=== PATIENT | female | born 1965 | race American Indian/Alaskan Native ===

== ENCOUNTER 2016-12-20 10:57 | Outpatient (CLI) | payer OTHER ==
--- NOTE | 2016-12-23 08:16 | Mammography Report ---
BILATERAL DIGITAL SCREENING MAMMOGRAM with CAD: 12/20/16 10:57:00 CLINICAL: Routine screening.Previous right benign biopsy. COMPARISON:12/27/15 and 09/08/14 FINDINGS: The breasts are heterogeneously dense, which may obscure small masses. Right upper asymmetry and architectural distortion on the MLO view requires additional imaging.No suspicious calcifications.The left breast is negative. IMPRESSION: Right asymmetry and architectural distortion requiring further workup. BI-RADS CATEGORY: 0 -- Additional Imaging Evaluation Required RECOMMENDATION: Recall for right exaggerated CC and spot magnification MLO views and right breast ultrasound if needed. ACR BI-RADS MAMMOGRAPHIC CODES: 0 = Needs additional imaging evaluation; 1 = Negative; 2 = Benign; 3 = Probably benign; 4 = Suspicious; 5 = Malignant; 6 = Known biopsy-proven malignancy COMMENT: 1. Dense breast tissue, i.e., adenosis, fibrocystic changes, etc., may obscure an underlying neoplasm. 2. Approximately 10% of cancers are not detected with mammography. 3. A negative mammography report should not delay biopsy if a clinically suspicious mass is present. COMMENT: Patient follow-up letters are generated via our [employer] application.
== END 2016-12-20 10:58 | disposition home or self-care (01) ==
LOC: SPVWC 10:57
PROVIDERS: ATTEND Internal Medicine
DX: Z12.31 Encounter for screening mammogram for malignant neoplasm of breast (principal)
CPT/HCPCS: 77067; G0202

== ENCOUNTER 2016-12-24 10:02 | Outpatient (CLI) | payer OTHER ==
--- NOTE | 2016-12-24 12:19 | Ultrasound Report ---
RIGHT DIGITAL DIAGNOSTIC MAMMOGRAM and RIGHT BREAST ULTRASOUND: 12/24/16 10:02:00 CLINICAL: Recalled for asymmetry. COMPARISON:12/20/16 screening FINDINGS: The upper posterior irregular asymmetry persists on a spot magnification MLO view but there is no correlation on other views. Ultrasound of the right breast (including all four quadrants and the retroareolar area) was performed and demonstrated normal fibroglandular and fatty structures. No mass, cyst or shadowing to correlate with the mammographic finding. IMPRESSION: A probably benign mammographic asymmetry identified only on one view of the mammogram with the negative ultrasound. Recommend short-term followup with a right diagnostic mammogram in three months. BI-RADS CATEGORY: 3 - - Probably Benign ACR BI-RADS MAMMOGRAPHIC CODES: 0 = Needs additional imaging evaluation; 1 = Negative; 2 = Benign; 3 = Probably benign; 4 = Suspicious; 5 = Malignant; 6 = Known biopsy-proven malignancy COMMENT: 1. Dense breast tissue, i.e., adenosis, fibrocystic changes, etc., may obscure an underlying neoplasm. 2. Approximately 10% of cancers are not detected with mammography. 3. A negative mammography report should not delay biopsy if a clinically suspicious mass is present. COMMENT: Patient follow-up letters are generated via our [employer] application.
== END 2016-12-24 10:03 | disposition home or self-care (01) ==
LOC: SPVWC 10:02
PROVIDERS: ATTEND Internal Medicine
DX: N64.89 Other specified disorders of breast (principal); R92.8 Other abnormal and inconclusive findings on diagnostic imaging of breast
CPT/HCPCS: 76641; G0206

== ENCOUNTER 2017-01-06 14:10 | Outpatient (CLI) | payer OTHER ==
--- NOTE | 2017-01-07 10:27 | Magnetic Resonance Report ---
BILATERAL BREAST MRI WITHOUT AND WITH CONTRAST: 01/06/17 14:10:00 CLINICAL: Abnormal right mammogram with asymmetry and architectural distortion. Negative right breast ultrasound. COMPARISON:12/20/16 and 12/24/16 grams. TECHNIQUE: Axial 1.0-mm T1 without, axial high resolution 2.0-mm T2 and axial 1.0-mm dynamic Vibrant high-resolution postcontrast T1 fat saturation sequences on a 1.5 Bell magnet. The examination was performed with an 8 channel dedicated [place] breast coil. Post processing with CAD and subtraction was performed on an [employer] workstation. 20 cc of Multihance was injected without incident for the contrast portion of the exam. Consent was obtained prior to the administration of the contrast. FINDINGS: Right: Minimal background parenchymal enhancement. No mass or suspicious enhancement. Nonenhancing upper outer asymmetric soft tissue correlates with the recent mammographic findings. An upper outer benign intraparenchymal lymph node measures 4 mm and is located 6.5 cm from the nipple. No suspicious lymph nodes. Left: Minimal background parenchymal enhancement. No mass or suspicious enhancement. A benign upper inner intraparenchymal lymph node measures 2 mm and is located 4.0 cm from the nipple. No suspicious lymph nodes. IMPRESSION: Negative study with no suspicious finding. Benign asymmetric right upper outer soft tissue correlates with the asymmetry and architectural distortion on the MLO view of the recent mammogram. Recommend routine mammographic screening. BI-RADS 2 -- Benign
== END 2017-01-06 14:11 | disposition home or self-care (01) ==
LOC: SPVIMAG 14:10
PROVIDERS: ATTEND Surgery
DX: N64.89 Other specified disorders of breast (principal)
CPT/HCPCS: 0159T; A9577; C8908; 77059

== ENCOUNTER 2017-06-05 13:56 | Outpatient (CLI) | payer OTHER ==
--- NOTE | 2017-06-05 14:36 | Mammography Report ---
Right tomomammogram and 2-D reconstruction: The 2-D images again demonstrate a very minimal degree of architectural change in the superior right breast not seen in the CC projection. This appears unchanged from prior exam in December 2016. There made to the right breast pattern is likewise unchanged and unremarkable. The tomomammograms demonstrates this area of architectural change having no overtly suspicious characteristics. It is of note that this patient has had a generally nonsuspicious MR and negative ultrasound as part of her evaluation. Impression: Probably benign findings. Recommendation: Reevaluate with her annual mammogram in December. BI-RADS CATEGORY: 3 = Probably benign ACR BI-RADS MAMMOGRAPHIC CODES: 0 = Needs additional imaging evaluation; 1 = Negative; 2 = Benign; 3 = Probably benign; 4 = Suspicious; 5 = Malignant; 6 = Known biopsy-proven malignancy COMMENT: 1. Dense breast tissue, i.e., adenosis, fibrocystic changes, etc., may obscure an underlying neoplasm. 2. Approximately 10% of cancers are not detected with mammography. 3. A negative mammography report should not delay biopsy if a clinically suspicious mass is present.
== END 2017-06-05 13:57 | disposition home or self-care (01) ==
LOC: MAMMO 13:56
PROVIDERS: ATTEND Surgery
DX: R92.8 Other abnormal and inconclusive findings on diagnostic imaging of breast (principal)
CPT/HCPCS: 77065; G0279

== ENCOUNTER 2017-12-26 07:38 | Outpatient (CLI) | payer OTHER ==
--- NOTE | 2017-12-26 11:35 | Mammography Report ---
BILATERAL DIGITAL SCREENING MAMMOGRAM with CAD and DIGITAL BREAST TOMOSYNTHESIS (DBT) : 12/26/17 CLINICAL: Routine screening. COMPARISON:06/05/17 and 12/24/16 right mammograms and 12/20/16 bilateral screening mammogram FINDINGS: The breasts are heterogeneously dense, which may obscure small masses. The fibroglandular pattern is stable. No mass, architectural distortion or suspicious calcifications. IMPRESSION: No mammographic evidence of malignancy. BI-RADS CATEGORY: 1 - - Negative RECOMMENDATION: Routine mammographic screening in one year. COMMENT: Patient follow-up letters are generated by our [employer] application.
== END 2017-12-26 07:39 | disposition home or self-care (01) ==
LOC: SPVWC 07:38
PROVIDERS: ATTEND Surgery
DX: Z12.31 Encounter for screening mammogram for malignant neoplasm of breast (principal)
CPT/HCPCS: 77063; 77067

== ENCOUNTER 2018-12-28 08:43 | Outpatient (CLI) | payer OTHER ==
--- NOTE | 2018-12-28 11:19 | Mammography Report ---
DIGITAL SCREENING MAMMOGRAM WITH TOMOSYNTHESIS WITH CAD, 12/28/2018 INDICATION: Routine Screening Mammography. -screening jasson TECHNIQUE: Digital bilateral 2D and 3D mammography with tomosynthesis was obtained in the [place] and mediolateral oblique projections. Computer-Aided Detection (CAD) analysis was used for inter pretation of this study. COMPARISON: 12/26/2017 FINDINGS: Breast Density: The breasts are heterogeneously dense, which may obscure small masses. There is no evidence of dominant mass, suspicious calcifications or architectural distortion in eithe r breast. IMPRESSION: No mammographic evidence of malignancy. Follow up recommendation: Routine yearly BI-RADS Category 1: Negative. A "normal" or negative report should not discourage follow up or biopsy of a clinically significant f inding. A written summary of these findings will be mailed to the patient. The patient will be entered into a mammography reporting system which will generate a reminder letter for the patient's next appointmen t at the appropriate interval. The [employer] recommends yearly mammograms starting at age 40 and continuing as l jim as a woman is in good health. Breast MRI is recommended for women with an approximate 20-25% or greater lifetime risk of breast cancer, including women with a strong family history of breast or ova edmond cancer or who have been treated for Hodgkin's disease. Signer Name: Arturo Koroma MD Signed: 12/28/2018 11:15 AM Workstation Name: [id number]
== END 2018-12-28 08:44 | disposition home or self-care (01) ==
LOC: SPVWC 08:43
PROVIDERS: ATTEND Surgery
DX: Z12.31 Encounter for screening mammogram for malignant neoplasm of breast (principal)
CPT/HCPCS: 77063; 77067